=== PATIENT | female | born 1935 | race Two or more races ===

== ENCOUNTER 2017-12-17 23:16 | Emergency (ER) | payer MEDICAID, MEDICARE, OTHER ==
[~2017-12-17] VITALS: Ht 157.5 cm; Wt 65.8 kg
--- NOTE | 2017-12-17 23:25 | NUR ---
BB RA102 C/O N/V X1 DAY. PT STATES "IT FEELS LIKE HEARTBURN". PT IS AAOX4. RESP EVEN AND UNLABORED. VSS. SKIN WNL. NO S/S OF ACUTE DISTRESS NOTED. PT PLACED ON MONITOR AND POX. PT SAFETY AND COMFORT MEASURES IN PLACE. FAMILY MEMBER BEDSIDE WITH PT.
[2017-12-17] MEDS ORDERED: ONDANSETRON HCL/PF 4 MG/2 ML VIAL ONE (23:55)
[2017-12-17] MEDS ORDERED: PANTOPRAZOLE 40 MG VIAL ONE (23:55)
[2017-12-18] MEDS ORDERED: ONDANSETRON HCL/PF - ER 4 MG/2 ML VIAL IV ONE
[2017-12-18] MEDS ORDERED: PANTOPRAZOLE 40 MG VIAL IV ONE
[2017-12-18 00:08] LABS: BASOPHILS % (AUTO) 0.1 % (0.0-2.0); EOSINOPHILS % (AUTO) 0.2 % (0.0-6.0); HEMATOCRIT 35 % (33-45); HEMOGLOBIN 12.3 g/dL (11.5-14.8); LYMPHOCYTES # (AUTO) 1.2 /CMM (0.8-4.8); MEAN CORPUSCULAR HGB CONC 36 g/dl (31.0-36.0); MEAN CORPUSCULAR VOLUME 93 fL (82-100); MONOCYTES # (AUTO) 0.3 /CMM (0.1-1.30); MONOCYTES % (AUTO) 2.9 % (2.0-12.0); NEUTROPHILS # (AUTO) 8.2 /CMM (1.8-8.9); NEUTROPHILS % (AUTO) 84.8 % (43.0-81.0); PLATELET COUNT (AUTO) 400 /CMM (150-450); RDW COEFFICIENT OF VARIATION 11.8 (11.5-15.0); RED BLOOD CELL COUNT(AUTO) 3.74 MIL/uL (4.0-5.2); WHITE BLOOD COUNT (AUTO) 9.6 K/uL (4.3-11.0)
[2017-12-18 00:21] LABS: CALCIUM, SERUM 9.3 mg/dL (8.5-10.1); CARBON DIOXIDE 23 mmol/L (21-32); CHLORIDE 86 mmol/L (98-107); CREATININE 0.6 mg/dL (0.6-1.3); GLUCOSE 126 mg/dL (74-106); POTASSIUM 3.6 mmol/L (3.5-5.1); SODIUM SERUM 122 mmol/L (136-145); UREA NITROGEN, BLOOD 14 mg/dL (7-18)
[2017-12-18 00:25] LABS: INR 0.93 (0.87-1.13)
[2017-12-18 00:27] LABS: ALANINE AMINOTRANSFERASE 24 U/L (12-78); ALKALINE PHOSPHATASE 49 U/L (46-116); ASPARTATE AMINOTRANSFERASE 19 U/L (15-37); BILIRUBIN,DIRECT 0.1 mg/dL (0.0-0.2); BILIRUBIN,TOTAL 0.5 mg/dL (0.2-1.0); LIPASE 124 U/L (73-393); TOTAL PROTEIN, SERUM 7.7 g/dL (6.4-8.2)
[2017-12-18 00:29] LABS: TROPONIN I < 0.017 ng/mL (0.00-0.056)
[2017-12-18] MEDS ORDERED: IV NS 0.9% 500 ML IV ONE (00:31)
[2017-12-18] MEDS ORDERED: CT SWABBABLE VALVE TRANS SET 1 EA INFUS.SET MC ONE (00:31)
[2017-12-18] MEDS ORDERED: IOHEXOL-300 100 ML VIAL IV ONE (00:31)
--- NOTE | 2017-12-18 01:35 | NUR ---
Patient is resting comfortably in bed with eyes closed. Easily aroused. VSS
--- NOTE | 2017-12-18 03:53 | NUR ---
PT REATING IN BED WITH NO S/S OF DISTRESS NOTED. VSS. PT'S FAMILY MEMBER BEDSIDE.
--- NOTE | 2017-12-18 04:45 | NUR ---
REPORT GIVEN TO SHERRY HELLER FOR [employer]
[2017-12-18] MEDS ORDERED: IV NS 0.9% 1,000 ML BAG IV ONE ×2 (05:00)
--- NOTE | 2017-12-18 05:17 | NUR ---
PT AND FAMILY INFORMED PER [facility] BENDER "WE'RE STILL WAITING FOR SOMEONE TO BE DOWN GRADED FROM [facility] [place] FOR US TO BE ABLE TO TRANSFER THE PT; SO IT'S GONNA BE A WHILE".
[2017-12-18 06:10] VITALS: BP 145/78
--- NOTE | 2017-12-18 06:10 | NUR ---
INFORMED BY FL[employer] MAKER ROMEO "NO [facility] YET BUT WILL INFORM YOU SOON ONE IS AVAILABLE". PT AND FAMILY NOTIFIED. AMBULATED TO RESTROOM WITH STEADY GAIT
--- NOTE | 2017-12-18 07:10 | NUR ---
DR ENNIS CALLED TO INFORM HIM THAT PATIENT HAS BEEN WAITING FOR A BED X 7.5 HRS, WANTS ELECTROLYTES REPEATED AND WILL SEE PT AT 0800. DR COMER INFORMED
[2017-12-18 07:13] LABS: APPEARANCE,URINE CLEAR (CLEAR); BILIRUBIN,URINE NEGATIVE (NEGATIVE); BLOOD, URINE NEGATIVE Ery/uL (NEGATIVE); COLOR,URINE YELLOW (YELLOW); KETONES,URINE NEGATIVE (NEGATIVE); LEUKOCYTE ESTERASE ,URINE NEGATIVE (NEGATIVE); NITRITE, URINE NEGATIVE (NEGATIVE); PH,URINE 7.5 (5.0-8.0); PROTEIN,URINE NEGATIVE (NEGATIVE); UGLUCOSE NEGATIVE (NEGATIVE); UROBILINOGEN,URINE 0.2 EU/dL (0.2)
--- NOTE | 2017-12-18 07:30 | NUR ---
[facility]; ROOM 204-A; DR. RICHARDS ACCEPTING; REPORT NUMBER [id number]
--- NOTE | 2017-12-18 07:35 | NUR ---
ETA 0800 PER ROMEO
[2017-12-18 08:03] LABS: CALCIUM, SERUM 8.5 mg/dL (8.5-10.1); CARBON DIOXIDE 24 mmol/L (21-32); CHLORIDE 93 mmol/L (98-107); CREATININE 0.7 mg/dL (0.6-1.3); GLUCOSE 120 mg/dL (74-106); POTASSIUM 3.6 mmol/L (3.5-5.1); SODIUM SERUM 127 mmol/L (136-145); UREA NITROGEN, BLOOD 10 mg/dL (7-18)
== END 2017-12-18 11:31 | disposition short-term general hospital (02) ==
LOC: ER 23:18
DX: E87.1 Hypo-osmolality and hyponatremia (principal); I10 Essential (primary) hypertension; M19.90 Unspecified osteoarthritis, unspecified site; Z90.49 Acquired absence of other specified parts of digestive tract; Z90.89 Acquired absence of other organs
CPT/HCPCS: 36415 ×2; 70450; 71045; 74160; 80048 ×2; 80076; 81001; 83605; 83690; 84484; 85025; 85730; 93005; 96360; 96361; 96374; 96375; 96376; 99285; A4606; C9113; J2405 ×2; J7030 ×2; J7040; Q9967; Z7610; 81000-TC